=== PATIENT | female | born 1965 | race Caucasian/White ===

== ENCOUNTER 2016-06-13 01:50 | Emergency (ER) | payer OTHER ==
[~2016-06-13] VITALS: Ht 165.1 cm; Wt 67.5 kg
[2016-06-13 01:54] VITALS: Ht 165.1 cm; Wt 67.5 kg
[2016-06-13] MEDS ORDERED: ASPIRIN 325 MG TAB PO STA (02:04)
[2016-06-13] MEDS ORDERED: LIDOCAINE/MYLANTA 40 ML BTL PO ONE (02:30)
[2016-06-13 02:42] LABS: ADD SCAN DIFF NO
[2016-06-13 02:44] LABS: BASOPHIL # 0.1 10^3/ul (0.0-0.1); BASOPHILS % 1.4 % (0.0-2.0); EOSINOPHILS # 0.3 10^3/ul (0.0-0.5); EOSINOPHILS % 4.3 % (0.0-7.0); HEMATOCRIT 41.6 % (37.0-47.0); HEMOGLOBIN 13.7 g/dl (12.0-16.0); LYMPHOCYTES # 1.3 10^3/ul (0.8-2.9); LYMPHOCYTES % 20.6 % (15.0-51.0); MEAN CORPUSCULAR HEMOGLOBIN 30.4 pg (29.0-33.0); MEAN CORPUSCULAR HGB CONC 32.9 g/dl (32.0-37.0); MEAN CORPUSCULAR VOLUME 92.4 fl (82.0-101.0); MONOCYTE # 0.6 10^3/ul (0.3-0.9); MONOCYTES % 9.4 % (0.0-11.0); NEUTROPHIL # 4.1 10^3/ul (1.6-7.5); NEUTROPHILS % 64.1 % (39.0-77.0); PLATELET COUNT 254 10^3/UL (140-415); RED CELL DISTRIBUTION WIDTH 13.4 % (11.5-14.5); WHITE BLOOD COUNT 6.5 10^3/ul (4.8-10.8)
[2016-06-13 02:59] LABS: CHLORIDE 107 mmol/L (97-110); POTASSIUM 3.8 mmol/L (3.5-5.1); SODIUM 144 mmol/L (135-144)
[2016-06-13 03:00] LABS: INR 0.91; PARTIAL THROMBOPLASTIN TIME 29.2 Sec (25.0-35.0); PROTIME 12.2 Sec (12.2-14.2)
[2016-06-13 03:02] LABS: ANION GAP 17 (8-16); BLOOD UREA NITROGEN 12 mg/dl (7-20); CALCIUM 9.3 mg/dl (8.4-10.2); CARBON DIOXIDE 24 mmol/L (21-31); GLUCOSE 91 mg/dl (70-220)
--- NOTE | 2016-06-13 03:07 | RADRPT ---
PROCEDURE: XR Chest. CLINICAL INDICATION: Chest pain. TECHNIQUE: Single frontal view of the chest was obtained COMPARISON: None FINDINGS: The heart and mediastinum are within normal limits. The lungs are clear. There is no pleural effusion or pneumothorax. IMPRESSION: No acute disease. RPTAT: [facility] Physician Mike Date Time Electronically viewed and signed by Macarena Eubanks Physician on 06/13/2016 03:07 RS/
[2016-06-13 03:09] LABS: B-TYPE NATRIURETIC PEPTIDE 262 PG/ML (0-125)
[2016-06-13 03:32] LABS: TROPONIN-I < 0.012 ng/ml (0.00-0.12)
[2016-06-13] MEDS ORDERED: RANI150T9 PO (04:13)
--- NOTE | 2016-06-13 04:19 | ERD ---
ER Documentation Chief Complaint Date/Time DATE: 06/13/16 TIME: 04:15 Chief Complaint Chest pain 45 minutes ago HPI This 50-year-old female presented for 45 minutes of substernal chest pain. She states that she does have a history of acid reflux but this pain feels different. The pain is described as a aching sharp pain. She does not have shortness of breath or nausea currently. She denies any cardiac risk factors including hypertension, diabetes, high cholesterol. ROS All systems reviewed and are negative except as per history of present illness. Medications Home Meds Active Scripts Ranitidine Hcl* (Zantac*) 150 Mg Tablet, 150 MG PO BID Y for EPIGASTRIC PAIN, # 30 TAB Prov:CLINTON ECHEVERRIA DO 06/13/16 Allergies Allergies: Coded Allergies: No Known Allergy (Unverified , 06/13/16) PMhx/Soc History of Surgery: No Anesthesia Reaction: No Hx Neurological Disorder: No Hx Respiratory Disorders: No Hx Cardiac Disorders: No Hx Psychiatric Problems: No Hx Miscellaneous Medical Probl: No Hx Alcohol Use: Yes (SOCIAL) Hx Substance Use: No Hx Tobacco Use: Yes Smoking Status: Current every day smoker Physical Exam Vitals Vital Signs Date Time Temp Pulse Resp B/P Pulse Ox O2 Delivery O2 Flow Rate FiO2 06/13/16 01:54 98.5 99 20 156/84 100 Physical Exam Const: [] Head: Atraumatic Eyes: Normal Conjunctiva ENT: Normal External Ears, Nose and Mouth. Neck: Full range of motion..~ No meningismus. Resp: Clear to auscultation bilaterally Cardio: Regular rate and rhythm, no murmurs Abd: Soft, non tender, non distended. Normal bowel sounds Skin: No petechiae or rashes Back: No midline or flank tenderness Ext: No cyanosis, or edema Neur: Awake and alert Psych: Normal Mood and Affect Result Diagram: 06/13/16 0219 06/13/16 021 Results 24 hrs Laboratory Tests Test 06/13/16 02:19 Activated Partial Thromboplast Time 29.2Sec Anion Gap 17 B-Type Natriuretic Peptide 262PG/ML Basophils # 0.110^3/ul Basophils % 1.4% Blood Urea Nitrogen 12mg/dl Calcium Level 9.3mg/dl Carbon Dioxide Level 24mmol/L Chloride Level 107mmol/L Creatinine 0.80mg/dl Eosinophils # 0.310^3/ul Eosinophils % 4.3% Glucose Level 91mg/dl Hematocrit 41.6% Hemoglobin 13.7g/dl INR International Normalized Ratio 0.91 Lymphocytes # 1.310^3/ul Lymphocytes % 20.6% Mean Corpuscular Hemoglobin 30.4pg Mean Corpuscular Hemoglobin Concent 32.9g/dl Mean Corpuscular Volume 92.4fl Mean Platelet Volume 10.0fl Monocytes # 0.610^3/ul Monocytes % 9.4% Neutrophils # 4.110^3/ul Neutrophils % 64.1% Nucleated Red Blood Cells # 0.010^3/ul Nucleated Red Blood Cells % 0.0/100WBC Platelet Count 89039^3/UL Potassium Level 3.8mmol/L Prothrombin Time 12.2Sec Prothrombin Time Ratio 1.0 Red Blood Count 4.5010^6/ul Red Cell Distribution Width 13.4% Sodium Level 144mmol/L Troponin I < 0.012ng/ml White Blood Count 6.510^3/ul Current Medications Medications (Trade) Dose Ordered Sig/Kristie Route PRN Reason Start Time Stop Time Status Last Admin Dose Admin Aspirin (Aspirin) 325 mg ONCE STAT PO 06/13/16 02:04 06/13/16 02:07 DC 06/13/16 02:28 Miscellaneous Medication (Gi Cocktail (2)) 40 ml ONCE ONCE PO 06/13/16 02:30 06/13/16 02:31 DC 06/13/16 02:28 Procedures/MDM Atypical chest pain in a low risk patient. She was given 325 mg aspirin. Chest pain resolved immediately following a GI cocktail. Patient was then completely asymptomatic. Negative troponin and no ischemic changes on EKG. At this point I doubt acute coronary syndrome. I am however recommending primary care follow-up in the next couple of days as well as a referral for an echocardiogram. I have low suspicion for PE, aortic dissection, esophageal rupture. EKG interpretation: Normal sinus rhythm rate, 98, normal axis, no ST or T-wave changes concerning for acute ischemia. youth nutritional monitor interpretation: Normal sinus rhythm without arrhythmia Chest x-ray interpretation: I see no acute process. See no widened mediastinum , no pneumothorax, no pulmonary edema, no fractures. Departure Diagnosis: Primary Impression: Chest pain Condition: Stable Patient Instructions: Chest Pain, Uncertain Cause Additional Instructions: Call your primary care doctor TOMORROW for an appointment during the next 1-2 days to obtain a referral for an ECHODARDIOGRAM. See the doctor sooner or return here if your condition worsens before your appointment time. CLINTON ECHEVERRIA DO Jun 13, 2016 04:19
[2016-06-13 04:30] VITALS: BP 115/78; PULSE 68; RESP 15
== END 2016-06-13 04:30 | disposition home or self-care (01) ==
LOC: E/R 01:50
DX: R07.2 Precordial pain (principal); F17.210 Nicotine dependence, cigarettes, uncomplicated; R07.9 Chest pain, unspecified
CPT/HCPCS: 36415; 71010; 80048; 83880; 84484; 85025; 85610; 85730; 93005